=== PATIENT | female | born 1970 | race Caucasian/White ===

== ENCOUNTER 2016-10-21 00:05 | Emergency (ER) | payer OTHER ==
[2016-10-21 00:15] VITALS: BP 100/75; BMI 23.8
--- NOTE | 2016-10-21 00:19 | DR.GENAD ---
HPI - PCP Primary Care Physician: RENITA BRADLEY - Complaint/Symptoms Chief Complaint Doctors Comments: Hx of broken tooth, had dentist check it 1 month ago and saving money for extraction. Chief Complaint:: LEFT JAW SORENESS, SWELLING, PAIN. PATIENT REPORTS A BROKEN TOOTH TO THE LEFT UPPER. - Nurses notes reviewed Nurses Notes Review: Yes - Source History Provided: Patient - Mode of Arrival Mode of Arrival: Ambulatory - Timing Onset of Chief Complaint: 10/20/16 Came on: Gradually - Duration How lon Duration: Days - Location Location: left upper jaw - Severity Severity: Moderate - Modifying Factors Worsens:: chewing PMH - PMH Past Medical History: No Past Surgical History: Yes Surgical History: Cholecystectomy, Hysterectomy - Family History History of Family Medical Conditions: Yes Family Medical History: Diabetes Mellitus, Coronary Artery Disease, Heart Failure - Social History Type of Tobacco Use: None Alcohol Use: None Do you use any recreational Drugs:: No Lives With: Family Lives Where: Home - infectious screening In the last 2 months have you had wt loss of >10#?: NO Have you had fever, night sweats or hemotysis?: No Have you traveled outside the country in the last 6 months?: No Isolation: Standard ROS - Review of Systems Constitutional: No Symptoms Reported Eyes: No Symptoms Reported ENTM: Mouth Pain (left upper tooth fracture) Respiratoy: No Symptoms Reported Cardiovascular: No Symptoms Reported Gastrointestinal/Abdominal: No Symptoms Reported Genitourinary: No Symptoms Reported Neurological: No Symptoms Reported Musculoskeletal: No Symptoms Reported Integumentary: No Symptoms Reported Hematologic/Lymphatic: No Symptoms Reported Endocrine: No Symptoms Reported Psychiatric: No Symptoms Reported PE - Vital Signs Vitals: Temperature 98.6 F Pulse Rate 76 Respiratory Rate 20 Blood Pressure 100/75 O2 Sat by Pulse Oximetry 100 - General Limitations: No Limitations General Appearance: Alert, In No Apparent Distress - Head Head Exam: Normal Inspection - Eyes Eye exam: Normal Appearance, EOMI. negative: Scleral Icterus, Conjunctival Injection - ENT ENT Exam: Other (fx lef yin tooth) - Neck Neck Exam: Normal Inspection, Full ROM, Trachea Midline - Respiratory Respiratory Exam: negative: Accessory Muscle Use, Respiratory Distress - Extremities Extremities Exam: Normal Inspection - Neurologic Neurological Exam: Alert, Oriented X3, CN II-XII Intact - Psychiatric Psychiatric Exam: Normal Mood - Skin Skin Exam: Intact, Normal Color - Diagnosis Discharge Problem: Fracture, tooth Qualifiers: Encounter type: subsequent encounter Fracture type: closed Fracture healing: with routine healing Qualified Code(s): S02.5XXD - Fracture of tooth (traumatic) , subsequent encounter for fracture with routine healing - Discharge Plan Condition: Stable Prescriptions: Amoxicillin [AMOXIL CAP 500 MG *] 500 mg PO TID #30 cap Ketorolac Tromethamine [TORADOL TAB 10 MG *] 10 mg PO Q8H PRN #12 tab PRN Reason: Pain - Follow ups/Referrals Follow ups/Referrals: TIKA BRADLEY [Primary Care Provider] - 3 days - Instructions
[2016-10-21] MEDS ORDERED: AMOXIL CAP 500 MG PO ONE (00:38)
[2016-10-21] MEDS ORDERED: TORADOL 60 MG VIAL IM ONE (00:38)
[2016-10-21] MEDS ORDERED: TORADOL 60 MG VIAL ONE (00:43)
== END 2016-10-21 00:56 | disposition home or self-care (01) ==
LOC: ER 00:05
DX: S02.5XXD Fracture of tooth (traumatic), subsequent encounter for fracture with routine healing (principal); Y33.XXXA Other specified events, undetermined intent, initial encounter
CPT/HCPCS: 96372; 99282; J1885